=== PATIENT | female | born 1955 | race Caucasian/White ===

== ENCOUNTER 2017-05-09 14:29 | Emergency (ER) | payer OTHER ==
--- NOTE | 2017-05-09 14:48 | ED.PDOC ---
General ED Provider: Dr. ANNALISA BELLA JR Chief Complaint: Toe Pain/Injury Stated Complaint: ULceration to bilat great toes. Has been treated for it for [address] Ten De La Garza, painter hand in [place]. States gotten worse over past couple days. Foul smell. Redness to both toes. Hx DM. Has not had po meds or insulin x 2 years. Does not check her blood sugar at home[End] 7 months 97.0 60 20 95% 118/73 09/20 Time Seen by Physician: 14:48 Mode of Arrival: Wheelchair Information Source: Patient Exam Limitations: No limitations Nursing and Triage Documentation Reviewed and Agree: No Review of Systems - Review Of Systems Constitutional: Reports: Malaise Eyes: Reports: No symptoms Ears, Nose, Mouth, Throat: Reports: No symptoms Respiratory: Reports: No symptoms Cardiac: Reports: No symptoms GI: Reports: No symptoms : Reports: No symptoms Musculoskeletal: Reports: No symptoms Skin: Reports: Lesions Neurological: Reports: Numbness Endocrine: Reports: No symptoms Hematologic/Lymphatic: Reports: No symptoms All Other Systems: Other Past Medical History - Past Medical History Previously Healthy: No Endocrine: Reports: DM 1 Cardiovascular: Reports: Hypertension Respiratory: Reports: COPD Hematological: Reports: None Gastrointestinal: Reports: None Genitourinary: Reports: None Neuro/Psych: Reports: None, Other (diabetic neuropathy ,RLS) Musculoskeletal: Reports: None Cancer: Reports: None Last Menstrual Period: hysterectomy - Surgical History General Surgical History: Reports: Back Surgery (SPINAL FUSION), Other (1/4 COLON REMOVED), Unknown - Family History Family History: Reports: Unknown - Social History Smoking Status: Current every day smoker, Light tobacco smoker Hx Substance Use: No Alcohol Screening: None Physical Exam - Physical Exam Appearance: Well-appearing, Obese Pain Distress: Mild Neck: Supple Respiratory: Airway patent, Breath sounds clear, Breath sounds equal Skin: Warm, Dry, Normal color (bilateral great toe medioplantar ulcerations with blached surrounding dry skinand oozing at ulcer margin toes both violaceous - poor circulation still present) Critical Care Note - Critical Care Note Total Time (mins): 0 Course - Course Hematology/Chemistry: 05/09/17 15:21 05/09/17 15:21 Orders, Labs, Meds: Lab Review 05/09/17 15:21 WBC 7.03 RBC 3.95 L Hgb 12.3 Hct 35.4 L MCV 89.6 MCH 31.1 H MCHC 34.7 RDW Coeff of Alia 13.3 Plt Count 155 Immature Gran % (Auto) 0.6 Neut % (Auto) 64.4 Lymph % (Auto) 25.9 [place] % (Auto) 7.1 Eos % (Auto) 1.4 Baso % (Auto) 0.6 Immature Gran # (Auto) 0.0 Neut # 4.5 Lymph # 1.8 Pitt # 0.5 Eos # 0.1 Baso # 0.0 Sodium 139 Potassium 4.5 Chloride 101 Carbon Dioxide 27 Anion Gap 15.5 BUN 20 H Creatinine 1.57 H Estimated GFR (MDRD) 34.00 BUN/Creatinine Ratio 12.73 Glucose 369 H Calcium 9.9 Total Bilirubin 0.35 AST 12 L ALT 14 Alkaline Phosphatase 61 Total Protein 7.4 Albumin 3.2 L Globulin 4.2 Albumin/Globulin Ratio 0.76 Procalcitonin 0.05 Orders Category Date Time Status BLOOD CULTURE Stat LAB 05/09/17 15:21 Received CBC W/ AUTO DIFF Stat LAB 05/09/17 15:21 Completed COMPREHENSIVE METABOLIC PANEL Stat LAB 05/09/17 15:21 Completed PROCALCITONIN Stat LAB 05/09/17 15:21 Completed Ketorolac Tromethamine [Toradol] MEDS 05/09/17 17:08 Discontinued 60 mg IM ONCE STA Medications Discontinued Medications Generic Name Dose Route Start Last Admin Trade Name Freq PRN Reason Stop Dose Admin Ketorolac Tromethamine 60 mg 05/09/17 17:08 05/09/17 17:23 Toradol IM 05/09/17 17:09 60 mg ONCE STA Administration Vital Signs: Temp Pulse Resp BP Pulse Ox 05/09/17 14:31 97.0 F L 60 20 118/73 95 Departure - Departure Time of Disposition: 15:06 Disposition: HOME SELF-CARE Discharge Problem: Diabetic foot ulcers Qualifiers: Diabetic foot ulcer location: toe Diabetes mellitus type: type 2 Laterality: unspecified laterality Non-pressure ulcer stage: with fat layer exposed Qualifier Code: (E11.621) Type 2 diabetes mellitus with foot ulcer Instructions: Foot Care for People with Diabetes (ED), Diabetic Foot Ulcers (ED ) Condition: Fair Pt referred to PMD for follow-up: Yes Additional Instructions: ULCERS REQUIRE DEBRIDEMENT FOLLOW UP WITH [employer] [facility] SOON POSSIBLE MAY FOLLOW UP WITH VASCULAR SURGERY IF OK WITH PMD MAY SOAK EACH SITE IN PEROXIDE TWICE A DAY FOR 10 TO 15 MINUTES THE DRY AND BANDAGE DISCUSS SOAKS WITH [employer] NO FEVER NO ELEVATION OF WHITE COUNT NO EVIDENCE OF SYSTEMIC INFECTION AT THIS POINT BOTH GREAT TOES SHOW EVIDENCE OF WORSENING- NEED TO HAVE DEFIINTIVE CARE- RECOMMEND SURGICAL CARE CALL PMD IN MORNING FOR FOLLOW UP RECOMMEND RESTART GLUCOPHAGE FOR DIABETES PLAN FOR INSULIN FOR DIABETES CHECK GLUCOSE DAILY RETURN OR RETURN TO A HOSPITAL WITH SURGICAL COVERAGE IF FEVER OVER 101.0 IF UNABLE TO KEEP CLEAR LIQUIDS DOWN OR IF WORSE Prescriptions: Metformin HCl [Glucophage] 500 mg PO BID #120 tablet Allergies/Adverse Reactions: Allergies hydromorphone HCl [From Dilaudid] Adverse Reaction (Verified 05/09/17 14:41) Home Medications: Ambulatory Orders Albuterol Sulfate [Proair Hfa] 2 puff INH Q4-6H PRN 12/19/13 Fluticasone/Salmeterol 250/50 [Advair 250-50 Diskus] 1 puff INH BID 12/19/13 Ranitidine HCl [Zantac] 300 mg PO QPM 12/19/13 Citalopram Hydrobromide [Celexa] 40 mg PO DAILY 07/30/16 Pregabalin [Lyrica] 100 mg PO BID 07/30/16 Quetiapine Fumarate [Seroquel] 200 mg PO BEDTIME 07/30/16 Ropinirole HCl [Requip] 2 mg PO BEDTIME 07/30/16 Alprazolam [Xanax] 1 mg PO BID 05/09/17 Hydrocodone Bit/Acetaminophen [[place] 7.5-325] 1 tab PO TID PRN 05/09/17 Metformin HCl [Glucophage] 500 mg PO BID #120 tablet 05/09/17 Transfer Form Completed: No Disposition Discussed With: Patient
[2017-05-09 14:49] VITALS: BP 118/73; TEMP 97; BMI 40.3
[2017-05-09 15:31] LABS: BASOPHILS % (AUTO) 0.6 % (0.0-3.0); EOSINOPHILS # (AUTO) 0.1 K/ul (0.0-0.7); EOSINOPHILS % (AUTO) 1.4 % (0.0-7.0); HEMATOCRIT 35.4 % (37.0-47.0); HEMOGLOBIN 12.3 g/dl (12.0-16.0); IMMATURE GRANULOCYTE % (AUTO) 0.6 % (0.0-5.0); LYMPHOCYTES # (AUTO) 1.8 K/uL (0.60-3.4); LYMPHOCYTES % (AUTO) 25.9 (10.0-50.0); MEAN CORPUSCULAR HEMOGLOBIN 31.1 pg (27.0-31.0); MEAN CORPUSCULAR HGB CONC 34.7 (31.8-35.4); MEAN CORPUSCULAR VOLUME 89.6 fl (81.0-99.0); MONOCYTES # (AUTO) 0.5 K/uL (0.4-2.0); MONOCYTES % (AUTO) 7.1 (0-10); NEUTROPHILS # (AUTO) 4.5 K/ul (2.0-6.9); NEUTROPHILS % (AUTO) 64.4; PLATELET COUNT 155 10^3/uL (140-440); RED BLOOD COUNT 3.95 10^6/ul (4.20-5.40); WHITE BLOOD COUNT 7.03 K/ul (4.6-10.2)
[2017-05-09 15:51] LABS: ALBUMIN 3.2 g/dL (3.4-5.0); ALBUMIN/GLOBULIN RATIO 0.76; ANION GAP 15.5; BILIRUBIN,TOTAL 0.35 mg/dL (0.00-1.20); BUN/CREATININE RATIO 12.73; CALCIUM 9.9 mg/dL (8.2-10.2); CREATININE 1.57 mg/dL (0.60-1.30); POTASSIUM 4.5 mmol/L (3.5-5.10); TOTAL PROTEIN 7.4 g/dL (6.4-8.2)
[2017-05-09] MEDS ORDERED: TORADOL IM STA (17:08)
== END 2017-05-09 17:37 | disposition home or self-care (01) ==
LOC: ED 14:29
DX: E11.621 Type 2 diabetes mellitus with foot ulcer (principal); L97.529 Non-pressure chronic ulcer of other part of left foot with unspecified severity; L97.519 Non-pressure chronic ulcer of other part of right foot with unspecified severity; I10 Essential (primary) hypertension; F17.210 Nicotine dependence, cigarettes, uncomplicated; Z91.14 Patient's other noncompliance with medication regimen; Z79.899 Other long term (current) drug therapy
CPT/HCPCS: 36415; 80053; 84145; 85025; 87040; 96372; 99283